=== PATIENT | male | born 1945 | race Caucasian/White ===

== ENCOUNTER → 2017-02-26 | Outpatient (REF) | payer MEDICARE ==
[~2017-02-26] MED LIST: ALBU17IN INH; ASPI1TAB PO; CLAR1TAB2 PO; FLUT11IN INH; LORA1SOL PO; LOSA100T PO; METO-207 PO; PANT40TA2 PO; SIMV10TA2 PO; VITA-122 PO
[2017-02-26 12:26] LABS: ALBUMIN/GLOBULIN RATIO 1.38 (1.00-1.93); ALKALINE PHOSPHATASE 109 U/L (45-117); ALT/SGPT 52 U/L (12-78); ANION GAP 8 MEQ/L (8-16); AST/SGOT 24 U/L (15-37); BILIRUBIN,TOTAL 0.4 MG/DL (0.2-1.0); BLOOD UREA NITROGEN 18 MG/DL (7-18); CALCIUM LEVEL 8.9 MG/DL (8.8-10.2); CARBON DIOXIDE LEVEL 29 MEQ/L (21-32); CHLORIDE LEVEL 100 MEQ/L (98-107); CHOLESTEROL LEVEL 159 MG/DL (<200); CREATININE FOR GFR 1.17 MG/DL (0.70-1.30); GLOMERULAR FILTRATION RATE > 60.0 (>42); GLUCOSE, FASTING 96 MG/DL (83-110); POTASSIUM SERUM 4.8 MEQ/L (3.5-5.1); SODIUM LEVEL 137 MEQ/L (136-145); TOTAL PROTEIN 6.9 GM/DL (6.4-8.2); TRIGLYCERIDES LEVEL 159 MG/DL (<150)
== END ==
LOC: M LABDRAW1 11:38
PROVIDERS: ATTEND Emergency Medicine
DX: I10 Essential (primary) hypertension (principal); E78.2 Mixed hyperlipidemia; E55.9 Vitamin D deficiency, unspecified; N40.1 Benign prostatic hyperplasia with lower urinary tract symptoms

== ENCOUNTER → 2017-04-10 | Outpatient (CLI) | payer MEDICARE ==
[~2017-04-10] MED LIST changes: -LOSA100T PO; +LOSA100T8 PO; -METO-207 PO; +METO-398 PO; +METO1TAB33 PO; +METO1TAB7 PO; +SIMV20TA2 PO
[2017-04-15 00:07] LABS: HSV TYPE I IgM AB <1:10 titer (<1:10); HSV TYPE II IgM ABY <1:10 titer (<1:10)
== END ==
LOC: M SMT 14:13
PROVIDERS: ATTEND Nurse Practitioner Women's Health
DX: Z11.3 Encounter for screening for infections with a predominantly sexual mode of transmission (principal); N48.9 Disorder of penis, unspecified; Z72.89 Other problems related to lifestyle
CPT/HCPCS: 36415; 86695; 86696; 86780; 87899; G0463

== ENCOUNTER → 2017-05-23 | Outpatient (CLI) | payer MEDICARE ==
[2017-05-23 13:58] LABS: MEAN CORPUSCULAR HEMOGLOBIN 33.3 pg (27.0-33.0); MEAN CORPUSCULAR HGB CONC 35.2 g/dl (32.0-36.5); MEAN CORPUSCULAR VOLUME 94.6 fl (80.0-96.0); RED CELL DISTRIBUTION WIDTH 12.8 % (11.5-14.5)
[2017-05-23 14:01] LABS: INR 0.97
[2017-05-23 14:20] LABS: ANION GAP 7 MEQ/L (8-16); BLOOD UREA NITROGEN 16 MG/DL (7-18); CARBON DIOXIDE LEVEL 28 MEQ/L (21-32); CHLORIDE LEVEL 103 MEQ/L (98-107); CREATININE FOR GFR 1.17 MG/DL (0.70-1.30); GLOMERULAR FILTRATION RATE > 60.0 (>42); GLUCOSE, FASTING 89 MG/DL (83-110); SODIUM LEVEL 138 MEQ/L (136-145)
[2017-05-23 14:21] LABS: CALCIUM LEVEL 9.3 MG/DL (8.8-10.2)
== END ==
LOC: M SMT 11:10
PROVIDERS: ATTEND Urology
DX: N48.9 Disorder of penis, unspecified (principal)

== ENCOUNTER → 2017-05-27 | Day surgery (SDC) | payer MEDICARE ==
[~2017-05-27] VITALS: Ht 177.8 cm; Wt 97.5 kg
[~2017-05-27] MED LIST changes: +BACITRACIN OINT 30GM As Ordered ONE; +BUPIVACAINE HCL 0.25% 30 ML VIAL As Ordered ONE; +KETOROLAC 60 MG/2 ML VIAL (J1885) As Ordered ONE; +LIDOCAINE 1% SDV INJ 30 ML VIAL As Ordered ONE; +LIDOCAINE 2% INJ 100 MG/5 ML SDV (FOR ANES.) As Ordered ONE; +LR 1,000 ML IV SCH; +MIDAZOLAM INJ 2 MG/2 ML VIAL (J2250) As Ordered ONE; +PROPOFOL 200 MG/20 ML VIAL As Ordered ONE; +ceFAZolin 2 GM/D5W 50 ML IV BAG (J0690) As Ordered ONE; +fentaNYL 100 MCG/2 ML INJECTION (J3010) As Ordered ONE
[2017-05-27 10:20] VITALS: BP 168/82
--- NOTE | 2017-05-28 07:24 | RO ---
DATE OF PROCEDURE: 05/27/2017 PREPROCEDURE DIAGNOSIS: Penile lesion. POSTPROCEDURE DIAGNOSIS: Penile lesion. FINDINGS: 1-2 cm penile lesion in the glans of the penis times two. PROCEDURE: Penile glans punch biopsy times two. SURGEON: Dr. Venkat Newman. TELEGRAPH OFFICE TELEPHONE CLERK: None. ANESTHESIA: General. COMPLICATIONS: None. ESTIMATED BLOOD LOSS: N/A. HISTORY OF PRESENT ILLNESS: 71-year-old male patient who has dark lesions in the glans. It has not disappeared with other medical therapy. For this reason, we have consented the patient for penile glans punch biopsies under anesthesia. PROCEDURE DESCRIPTION: With the patient under general anesthesia in supine position, after prepping and draping the area of concern which included the penile glans and genitalia, we started by doing a penile block with 10 mL of Marcaine 0.25% and lidocaine 1% a total of 10 mL in the base of the penis. We then proceeded to have two punch biopsies of the lesions and sent it for permanent pathology analysis. We placed a #3-0 Chromic to secure hemostasis. We placed bacitracin cream, fluff and a scrotal support. PLAN: The patient will pass to recovery and then he will be discharged home. He will followup at [facility] in about 1 week.
== END | disposition home or self-care (01) ==
LOC: M SDC 06:59
PROVIDERS: ATTEND Urology
DX: D07.4 Carcinoma in situ of penis (principal); E78.4 Other hyperlipidemia; I10 Essential (primary) hypertension; J44.9 Chronic obstructive pulmonary disease, unspecified; K21.9 Gastro-esophageal reflux disease without esophagitis; Z79.899 Other long term (current) drug therapy; Z79.82 Long term (current) use of aspirin; Z79.51 Long term (current) use of inhaled steroids; Z87.891 Personal history of nicotine dependence
CPT/HCPCS: 54100; 88305; J0690; J1885; J2250; J3010

== ENCOUNTER → 2017-06-13 | Outpatient (CLI) | payer MEDICARE ==
[~2017-06-13] MED LIST changes: -BACITRACIN OINT 30GM As Ordered ONE; -BUPIVACAINE HCL 0.25% 30 ML VIAL As Ordered ONE; +ISOVUE-370 76% 100ML VIAL (Q9967) As Ordered ONE; -KETOROLAC 60 MG/2 ML VIAL (J1885) As Ordered ONE; -LIDOCAINE 1% SDV INJ 30 ML VIAL As Ordered ONE; -LIDOCAINE 2% INJ 100 MG/5 ML SDV (FOR ANES.) As Ordered ONE; -LR 1,000 ML IV SCH; -MIDAZOLAM INJ 2 MG/2 ML VIAL (J2250) As Ordered ONE; -PROPOFOL 200 MG/20 ML VIAL As Ordered ONE; -ceFAZolin 2 GM/D5W 50 ML IV BAG (J0690) As Ordered ONE; -fentaNYL 100 MCG/2 ML INJECTION (J3010) As Ordered ONE
--- NOTE | 2017-06-13 15:08 | REP ---
CT of the abdomen and pelvis multiphase scanning without and with IV contrast: Comparison is 04/20/2014. The visualized lung stark are unremarkable. The hepatic parenchyma, pancreas and spleen are homogeneous and unremarkable on all phases of the study. There are surgical clips in the gallbladder fossa. The adrenals and kidneys are unremarkable. The abdominal aorta is unremarkable. There is no periaortic or retroperitoneal adenopathy. There is no mesenteric adenopathy. There is no ascites. The bowel and mesentery are unremarkable. Pelvis: There is no ascites. There is no inguinal adenopathy. There are several inguinal nodes bilaterally containing normal fatty nelson. There are no femoral or iliac enlarged nodes. No enlarged internal iliac nodes. The bladder and seminal vesicles are unremarkable. There are prostatic of this. The pelvic bowel loops are unremarkable. There are no lytic, blastic or destructive skeletal changes. Impression: Essentially negative CT study of the abdomen and pelvis. There is no lymphadenopathy or ascites. There are no lytic, blastic or destructive skeletal changes. Signed by Vamshi Medley MD 06/13/2017 02:59 P
--- NOTE | 2017-06-13 15:35 | REP ---
PA and lateral chest: Comparison is 05/02/2016. The lung stark are clear. The cardiac size is normal The nelson, mediastinum, and bony thorax are unremarkable. Impression: Negative PA and lateral chest. There is no interval change Signed by Vamshi Medley MD 06/13/2017 03:26 P
== END ==
LOC: M RAD 12:48
PROVIDERS: ATTEND Urology
DX: C60.9 Malignant neoplasm of penis, unspecified (principal)
CPT/HCPCS: 71020; 74178; Q9967

== ENCOUNTER → 2018-03-16 | Outpatient (REF) | payer MEDICARE ==
[2018-03-16 14:05] LABS: BASO % 0.5 % (0.0-1.0); EOS # 0.4 10^3/uL (0.0-0.50); EOS % 7.7 % (0.0-3.0); HEMATOCRIT 38.5 % (42.0-52.0); HEMOGLOBIN 13.7 g/dl (13.5-17.5); IMMATURE GRANULOCYTE % 0.2 % (0-3.0); LYMPH # 1.5 10^3/uL (1.5-4.5); LYMPH % 27.8 % (24.0-44.0); MEAN CORPUSCULAR HEMOGLOBIN 32.9 pg (27.0-33.0); MEAN CORPUSCULAR HGB CONC 35.6 g/dl (32.0-36.5); MEAN CORPUSCULAR VOLUME 92.5 fl (80.0-96.0); MONO # 0.6 10^3/uL (0.0-0.8); MONO % 11.5 % (0.0-5.0); NEUTROPHILS # 2.9 10^3/uL (1.8-7.7); NEUTROPHILS % 52.3 % (36.0-66.0); PLATELET COUNT, AUTOMATED 157 10^3/uL (150-450); RED BLOOD COUNT 4.16 10^6/uL (4.30-6.10); RED CELL DISTRIBUTION WIDTH 12.1 % (11.5-14.5); WHITE BLOOD COUNT 5.5 10^3/uL (4.0-10.0)
[2018-03-16 14:08] LABS: ALBUMIN 3.8 GM/DL (3.2-5.2); ALBUMIN/GLOBULIN RATIO 1.19 (1.00-1.93); ALKALINE PHOSPHATASE 125 U/L (45-117); ALT/SGPT 129 U/L (12-78); ANION GAP 7 MEQ/L (8-16); AST/SGOT 80 U/L (7-37); BILIRUBIN,TOTAL 0.6 MG/DL (0.2-1.0); BLOOD UREA NITROGEN 17 MG/DL (7-18); C REACTIVE PROTEIN QUANTITATIV 0.37 MG/DL (0.00-0.30); CALCIUM LEVEL 9.1 MG/DL (8.8-10.2); CARBON DIOXIDE LEVEL 28 MEQ/L (21-32); CHLORIDE LEVEL 103 MEQ/L (98-107); CREATININE FOR GFR 1.48 MG/DL (0.70-1.30); GLOMERULAR FILTRATION RATE 49.6 (>42); GLUCOSE, FASTING 95 MG/DL (70-100); POTASSIUM SERUM 4.2 MEQ/L (3.5-5.1); RHEUMATOID FACTOR QUANT < 10.0 IU/ML (<15.0); SODIUM LEVEL 138 MEQ/L (136-145)
[2018-03-16 14:48] LABS: HEPATITIS C VIRUS ABY INDEX < 0.0 INDEX (<0.8)
[2018-03-16 15:20] LABS: ERYTHROCYTE SEDIMENTATION RATE 10 mm/hr (0-20)
[2018-03-18 00:08] LABS: ANA (HEP2) Negative (.); Lyme Disease IgG/IgM Antibodie <0.91 ISR (0.00-0.90); Lyme Disease IgM Ab Quantitati <0.80 index (0.00-0.79)
== END ==
LOC: M LABDRAW1 11:30
DX: S20.361A Insect bite (nonvenomous) of right front wall of thorax, initial encounter (principal); X58.XXXA Exposure to other specified factors, initial encounter; Y92.89 Other specified places as the place of occurrence of the external cause; N18.3 Chronic kidney disease, stage 3 (moderate); R74.0 Nonspecific elevation of levels of transaminase and lactic acid dehydrogenase [LDH]; M25.50 Pain in unspecified joint
CPT/HCPCS: 80053

== ENCOUNTER 2018-08-27 09:59 | Day surgery (SDC) | payer MEDICARE ==
[2018-08-27] MEDS: NS 1,000 ML IV (10:24)
[2018-08-27] MEDS ORDERED: LIDOCAINE 2% INJ 100 MG/5 ML SDV (FOR ANES.) As Ordered (10:42)
[2018-08-27] MEDS ORDERED: PROPOFOL 200 MG/20 ML VIAL As Ordered ×2 (10:42→11:05)
== END 2018-08-27 11:49 | disposition home or self-care (01) ==
LOC: M OPP 09:59
DX: Z12.11 Encounter for screening for malignant neoplasm of colon (principal); Z86.010 Personal history of colon polyps; K62.1 Rectal polyp; D12.3 Benign neoplasm of transverse colon; K57.30 Diverticulosis of large intestine without perforation or abscess without bleeding; I10 Essential (primary) hypertension; E78.5 Hyperlipidemia, unspecified; K21.9 Gastro-esophageal reflux disease without esophagitis; R12 Heartburn; M19.90 Unspecified osteoarthritis, unspecified site; J44.9 Chronic obstructive pulmonary disease, unspecified; R06.02 Shortness of breath; Z79.82 Long term (current) use of aspirin; Z79.899 Other long term (current) drug therapy
CPT/HCPCS: 45385

== ENCOUNTER → 2019-03-08 | Outpatient (CLI) | payer MEDICARE ==
[~2019-03-08] MED LIST changes: -ASPI1TAB PO; +ASPI81TA26 PO; -ISOVUE-370 76% 100ML VIAL (Q9967) As Ordered ONE; -LORA1SOL PO; +LORA5SOL12 PO; +LOSA100T5 PO; -METO-398 PO; +METO200T28 PO; -PANT40TA2 PO; +PANT40TA3 PO; +VENTAER INH
[2019-03-08 10:55] LABS: BASO % 0.6 % (0.0-1.0); EOS # 0.5 10^3/uL (0.0-0.50); EOS % 9.5 % (0.0-3.0); HEMATOCRIT 40.2 % (42.0-52.0); HEMOGLOBIN 13.9 g/dl (13.5-17.5); LYMPH # 1.4 10^3/uL (1.5-4.5); MEAN CORPUSCULAR HEMOGLOBIN 32.9 pg (27.0-33.0); MEAN CORPUSCULAR HGB CONC 34.6 g/dl (32.0-36.5); MEAN CORPUSCULAR VOLUME 95.3 fl (80.0-96.0); MONO # 0.6 10^3/uL (0.0-0.8); MONO % 11.4 % (0.0-5.0); NEUTROPHILS # 2.8 10^3/uL (1.8-7.7); NEUTROPHILS % 52.3 % (36.0-66.0); PLATELET COUNT, AUTOMATED 141 10^3/uL (150-450); RED BLOOD COUNT 4.22 10^6/uL (4.30-6.10); WHITE BLOOD COUNT 5.4 10^3/uL (4.0-10.0)
[2019-03-08 11:30] LABS: ALBUMIN 3.8 GM/DL (3.2-5.2); BILIRUBIN,TOTAL 0.7 MG/DL (0.2-1.0); CALCIUM LEVEL 8.7 MG/DL (8.8-10.2); CHOLESTEROL RISK RATIO 2.678 (<5); CREATININE FOR GFR 1.27 MG/DL (0.70-1.30); POTASSIUM SERUM 4.2 MEQ/L (3.5-5.1); TOTAL PROTEIN 7.1 GM/DL (6.4-8.2)
== END ==
LOC: M SMT 09:09
PROVIDERS: ATTEND Physician Assistant
DX: E78.2 Mixed hyperlipidemia (principal)

== ENCOUNTER → 2019-03-08 | Outpatient (REF) | payer MEDICARE ==
[2019-03-08 13:54] LABS: RHEUMATOID FACTOR QUANT < 10.0 IU/ML (<15.0)
[2019-03-08 14:11] LABS: HEMOGLOBIN A1c 5.3 %
[2019-03-09 12:32] LABS: DRVV SCREEN 39.1 SEC
[2019-03-10 14:11] LABS: ANTI THROMBIN 3 FUNCT ACTIVITY 84 % (75-135)
[2019-03-11 00:07] LABS: ANCA-ATYPICAL <1:20 titer (Neg:<1:20); ANTINUCLEAR ANTIBODIES DIRECT Negative (Negative); CYTOPLASMIC NEUTROP AB ANCA-C <1:20 titer (Neg:<1:20); PERINUCLEAR AB ANCA-P <1:20 titer (Neg:<1:20); SJOGREN'S ANTI SS-A <0.2 AI (0.0-0.9); SJOGREN'S ANTI SS-B <0.2 AI (0.0-0.9)
[2019-03-11 14:27] LABS: ANTI DS-DNA AB <1:10 titer (.); CARDIOLIPIN IGA ANTIBODY <9 APL U/mL (0-11); CARDIOLIPIN IGG ANTIBODY <9 GPL U/mL (0-14); CARDIOLIPIN IGM ANTIBODY <9 MPL U/mL (0-12)
== END ==
LOC: M LABNEURO 11:01
PROVIDERS: ATTEND Psychiatry & Neurology Neurology
DX: G45.9 Transient cerebral ischemic attack, unspecified (principal); E78.2 Mixed hyperlipidemia

== ENCOUNTER → 2019-04-15 | Outpatient (CLI) | payer MEDICARE ==
--- NOTE | 2019-04-15 12:22 | REP ---
Chest two views HISTORY: Squamous cell carcinoma Comparison: 06/13/2017 The lungs are clear. The heart is normal in size. The pulmonary vasculature is normal in appearance. The bony structure is intact. IMPRESSION: No acute disease. Electronically Signed by Donell Gallegos MD 04/15/2019 12:13 P
[2019-04-15 17:40] LABS: BLOOD UREA NITROGEN 16 MG/DL (7-18); CALCIUM LEVEL 9.1 MG/DL (8.8-10.2); CARBON DIOXIDE LEVEL 30 MEQ/L (21-32); CHLORIDE LEVEL 106 MEQ/L (98-107); CREATININE FOR GFR 1.14 MG/DL (0.70-1.30); GLOMERULAR FILTRATION RATE > 60.0 (>42); GLUCOSE, FASTING 94 MG/DL (70-100); POTASSIUM SERUM 4.7 MEQ/L (3.5-5.1); SODIUM LEVEL 140 MEQ/L (136-145)
== END ==
LOC: M SMT 10:38
PROVIDERS: ATTEND Nurse Practitioner Women's Health
DX: C60.9 Malignant neoplasm of penis, unspecified (principal); D07.4 Carcinoma in situ of penis
CPT/HCPCS: 36415; 71046; 80048; G0463

== ENCOUNTER → 2019-04-22 | Outpatient (CLI) | payer MEDICARE ==
[~2019-04-22] MED LIST changes: +GASTROGRAFIN SOLUTION 30ML (Q9963) As Ordered ONE; +ISOVUE-370 76% 100ML VIAL (Q9967) As Ordered ONE
--- NOTE | 2019-04-22 17:33 | REP ---
CT urography: CT scan of the abdomen and pelvis without and with IV contrast: History: Penile cancer. Comparison CT study is from June 13, 2017. CT contrast dose: 100 ml of intravenous Isovue [address] findings: Preliminary digital insurance verification specialist radiograph shows clips in right upper quadrant. The lung bases are clear on axial CT images. There is no evidence of pleural effusion or upper abdominal ascites. The liver and the spleen are normal in size, homogeneous in texture. There are surgical clips post cholecystectomy. No adrenal lesion is seen. No pancreatic abnormalities observed. Kidneys enhance symmetrically and are morphologically intact. There is a 13 mm cyst in the upper pole of the left kidney which is slightly larger than on the 2017 study but not new. No retroperitoneal mass is seen. Normal retroperitoneal lymph nodes are noted, a change from the comparison study June 2017. There is some mural thrombus in a mildly ectatic common iliac artery on the left, unchanged. Vascular calcification is noted. No abhishek aneurysm is seen. There are dystrophic calcifications in the mildly prominent prostate gland. Urinary bladder is unremarkable. No pelvic mass or adenopathy is observed. Normal appendix is seen. No abdominal wall defect is observed. Bone window settings show no bony destructive lesion. There are degenerative disc changes at L5-S1 and to a lesser extent at the other lumbar levels. impression: No evidence of mass or adenopathy. Post cholecystectomy. Small left renal cyst. Prominent prostate gland. Otherwise negative. Electronically Signed by Rosas Shelton MD 04/22/2019 07:54 P
== END ==
LOC: M RAD 13:57
PROVIDERS: ATTEND Nurse Practitioner Women's Health
DX: Z85.528 Personal history of other malignant neoplasm of kidney (principal); N28.1 Cyst of kidney, acquired; Z90.49 Acquired absence of other specified parts of digestive tract
CPT/HCPCS: 74178; Q9963; Q9967

== ENCOUNTER → 2019-09-29 | Outpatient (REF) | payer MEDICARE ==
[~2019-09-29] MED LIST changes: -GASTROGRAFIN SOLUTION 30ML (Q9963) As Ordered ONE; -ISOVUE-370 76% 100ML VIAL (Q9967) As Ordered ONE; -SIMV10TA2 PO; +SIMV10TA21 PO; -SIMV20TA2 PO; +SIMV20TA22 PO
[2019-09-29 15:50] LABS: CALCIUM LEVEL 9.2 MG/DL (8.8-10.2); CREATININE FOR GFR 1.3 MG/DL (0.70-1.30); GLOMERULAR FILTRATION RATE 57.3 (>42); POTASSIUM SERUM 3.9 MEQ/L (3.5-5.1)
== END ==
LOC: M LABDRAW1 10:25
PROVIDERS: ATTEND Physician Assistant
DX: I10 Essential (primary) hypertension (principal)

== ENCOUNTER → 2020-04-13 | Outpatient (CLI) | payer MEDICARE ==
--- NOTE | 2020-04-13 10:11 | REP ---
ABDOMINAL SERIES: Supine and erect views of the abdomen demonstrate no free air and no evidence of obstruction. No dilated bowel loops are seen. There are vascular calcifications in the pelvis. There are degenerative changes of the spine and hips. An accompanying view of the chest demonstrates no acute infiltrate. The heart is normal in size. Mediastinal silhouette is unremarkable. IMPRESSION: Negative abdominal series. Unreviewed
== END ==
LOC: M ADAMS 08:49
PROVIDERS: ATTEND Physician Assistant
DX: R19.7 Diarrhea, unspecified (principal); R10.10 Upper abdominal pain, unspecified

== ENCOUNTER → 2020-04-13 | Outpatient (CLI) | payer MEDICARE ==
[~2020-04-13] MED LIST changes: +GASTROGRAFIN SOLUTION 30ML (Q9963) As Ordered ONE; +ISOVUE-370 76% 100ML VIAL As Ordered ONE
--- NOTE | 2020-04-13 12:53 | REP ---
CT ABDOMEN AND PELVIS WITH ORAL AND IV CONTRAST: TECHNIQUE: Axial contrast-enhanced images from the lung bases to the pubic symphysis using 100 mL Isovue-370 intravenous contrast material with multiplanar reformations. COMPARISON: 06/13/2017 No infiltrate is seen in the visualized lung bases. The liver demonstrates no mass. The patient has had a prior cholecystectomy. There is not significant biliary dilatation. Spleen is unremarkable. The adrenal glands demonstrate no mass. Pancreas demonstrates no mass. There is no hydronephrosis bilaterally. There is a 1.5 cm cyst in the upper pole of the left kidney with adjacent subcentimeter cyst. There is atherosclerotic calcification of the abdominal aorta without aneurysm. There is no free air or free fluid. No bowel wall thickening is seen. The appendix is normal. In the upper abdomen centrally in the mesentery, there are hazy inflammatory changes with multiple clustered subcentimeter lymph nodes compatible with mesenteric inflammation and mesenteritis. Again the small and large bowel loops demonstrate no evidence of wall thickening. There is no pelvic mass. Urinary bladder is mildly distended and grossly unremarkable. There are small bilateral inguinal hernias containing noninflamed fat. 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 No bowel wall abnormality is seen. Normal appendix. No free air, free fluid or bowel obstruction. Small bilateral inguinal hernias containing noninflamed fat. Unreviewed
== END ==
LOC: M RAD 10:03
PROVIDERS: ATTEND Physician Assistant
DX: K40.90 Unilateral inguinal hernia, without obstruction or gangrene, not specified as recurrent (principal); R10.10 Upper abdominal pain, unspecified; R19.7 Diarrhea, unspecified; M79.10 Myalgia, unspecified site
CPT/HCPCS: 36415; 74021; 74177; 80053; 83690; 85025; 86617; Q9963; Q9967

== ENCOUNTER → 2020-04-13 | Outpatient (CLI) | payer MEDICARE ==
[~2020-04-13] MED LIST changes: -GASTROGRAFIN SOLUTION 30ML (Q9963) As Ordered ONE; -ISOVUE-370 76% 100ML VIAL As Ordered ONE
[2020-04-13 10:11] LABS: BASO % 0.2 % (0.0-1.0); EOS # 0.4 10^3/uL (0.0-0.5); EOS % 6.3 % (0.0-3.0); HEMATOCRIT 44.9 % (42.0-52.0); HEMOGLOBIN 15.4 g/dl (13.5-17.5); LYMPH # 0.9 10^3/uL (1.5-5.0); LYMPH % 13.1 % (24.0-44.0); MEAN CORPUSCULAR HEMOGLOBIN 30.5 pg (27.0-33.0); MEAN CORPUSCULAR HGB CONC 34.3 g/dl (32.0-36.5); MEAN CORPUSCULAR VOLUME 88.9 fl (80.0-96.0); MONO # 0.8 10^3/uL (0.0-0.8); MONO % 12.5 % (0.0-5.0); NEUTROPHILS # 4.4 10^3/uL (1.5-8.5); NEUTROPHILS % 67.6 % (36.0-66.0); PLATELET COUNT, AUTOMATED 144 10^3/uL (150-450); RED BLOOD COUNT 5.05 10^6/uL (4.30-6.10); WHITE BLOOD COUNT 6.5 10^3/uL (4.0-10.0)
[2020-04-13 10:40] LABS: ALBUMIN 3.8 GM/DL (3.2-5.2); BILIRUBIN,TOTAL 0.8 MG/DL (0.2-1.0); CALCIUM LEVEL 8.7 MG/DL (8.8-10.2); CREATININE FOR GFR 1.69 MG/DL (0.70-1.30); GLOMERULAR FILTRATION RATE 42.3 (>42); POTASSIUM SERUM 4.3 MEQ/L (3.5-5.1)
[2020-04-14 19:08] LABS: Lyme Disease IgG/IgM Antibodie <0.91 ISR (0.00-0.90); Lyme Disease IgM Ab Quantitati <0.80 index (0.00-0.79)
== END ==
LOC: M LABDRWAD 08:54
PROVIDERS: ATTEND Physician Assistant
DX: R10.10 Upper abdominal pain, unspecified (principal); R19.7 Diarrhea, unspecified; M79.10 Myalgia, unspecified site

== ENCOUNTER 2020-04-17 17:05 | Emergency (ER) | payer MEDICARE ==
[~2020-04-17] VITALS: Ht 177.8 cm; Wt 98.7 kg
[2020-04-17] MEDS ORDERED: NS 1,000 ML IV ONE (17:45)
[2020-04-17] MEDS: GASTROGRAFIN SOLUTION 30ML PO SCH ×2 (18:08→18:32)
[2020-04-17 18:19] LABS: BASO % 0.3 % (0.0-1.0); EOS # 0.4 10^3/uL (0.0-0.5); EOS % 4.9 % (0.0-3.0); HEMATOCRIT 42.2 % (42.0-52.0); HEMOGLOBIN 14.2 g/dl (13.5-17.5); LYMPH # 1.8 10^3/uL (1.5-5.0); LYMPH % 23.8 % (24.0-44.0); MEAN CORPUSCULAR HEMOGLOBIN 30.2 pg (27.0-33.0); MEAN CORPUSCULAR HGB CONC 33.6 g/dl (32.0-36.5); MEAN CORPUSCULAR VOLUME 89.8 fl (80.0-96.0); MONO # 0.8 10^3/uL (0.0-0.8); MONO % 10.9 % (0.0-5.0); NEUTROPHILS # 4.6 10^3/uL (1.5-8.5); NEUTROPHILS % 59.7 % (36.0-66.0); PLATELET COUNT, AUTOMATED 213 10^3/uL (150-450); WHITE BLOOD COUNT 7.7 10^3/uL (4.0-10.0)
[2020-04-17 18:39] LABS: ALBUMIN 3.8 GM/DL (3.2-5.2); BILIRUBIN,DIRECT 0.3 MG/DL (0.0-0.2); BILIRUBIN,TOTAL 0.8 MG/DL (0.2-1.0)
[2020-04-17] MEDS ORDERED: NS 2,000 ML in IV 1 EA IV ONE (19:00)
[2020-04-17] MEDS ORDERED: ISOVUE-370 76% 100ML VIAL As Ordered ONE (19:34)
--- NOTE | 2020-04-17 20:45 | REPVR ---
PROCEDURE INFORMATION: Exam: CT Abdomen And Pelvis With Contrast Exam date and time: 04/17/2020 7:41 PM Age: 74 years old Clinical indication: Other: Diarrhea; Additional info: Diarrhea; R/O colitis TECHNIQUE: Imaging protocol: Computed tomography of the abdomen and pelvis with intravenous contrast. Radiation optimization: All CT scans at this facility use at least one of these dose optimization techniques: automated exposure control; mA and/or kV adjustment per patient size (includes targeted exams where dose is matched to clinical indication); or iterative reconstruction. Contrast material: ISOVUE 370; Contrast volume: 75 ml; Contrast route: IV; COMPARISON: CT ABD PELVIS WITH CONTRAST 04/13/2020 11:37 AM FINDINGS: Liver: Normal. No mass. Gallbladder and bile ducts: Cholecystectomy clips. Pancreas: Normal. No ductal dilation. Spleen: Normal. No splenomegaly. Adrenals: Normal. No mass. Kidneys and ureters: 1.4 cm cyst at the upper pole of left kidney. Stomach and bowel: Unremarkable. No obstruction. No mucosal thickening. Appendix: No evidence of appendicitis. Intraperitoneal space: Unremarkable. No free air. No significant fluid collection. Vasculature: Unremarkable. No abdominal aortic aneurysm. Lymph nodes: Unremarkable. No enlarged lymph nodes. Bladder: Unremarkable as visualized. Reproductive: Unremarkable as visualized. Bones/joints: Degenerative changes of the spine, most prominent at L5-S1. Soft tissues: Bilateral inguinal hernias containing fat. IMPRESSION: No evidence for colitis. Electronically signed by: Foster Izquierdo On 04/17/2020 20:45:03 PM
[2020-04-17 21:52] VITALS: BP 108/66
== END 2020-04-17 22:05 | disposition home or self-care (01) ==
LOC: M ED 17:05
DX: A07.2 Cryptosporidiosis (principal); R19.7 Diarrhea, unspecified; I10 Essential (primary) hypertension; J44.9 Chronic obstructive pulmonary disease, unspecified; N28.1 Cyst of kidney, acquired; K40.90 Unilateral inguinal hernia, without obstruction or gangrene, not specified as recurrent; M51.37 Other intervertebral disc degeneration, lumbosacral region; Z79.82 Long term (current) use of aspirin; Z79.899 Other long term (current) drug therapy

== ENCOUNTER → 2020-04-17 | Outpatient (CLI) | payer MEDICARE ==
[2020-04-17 13:38] LABS: BASO % 0.3 % (0.0-1.0); EOS # 0.4 10^3/uL (0.0-0.5); EOS % 5.2 % (0.0-3.0); HEMATOCRIT 42.6 % (42.0-52.0); HEMOGLOBIN 14.5 g/dl (13.5-17.5); LYMPH # 1.6 10^3/uL (1.5-5.0); LYMPH % 24.3 % (24.0-44.0); MEAN CORPUSCULAR HEMOGLOBIN 30.2 pg (27.0-33.0); MEAN CORPUSCULAR VOLUME 88.8 fl (80.0-96.0); MONO # 0.8 10^3/uL (0.0-0.8); MONO % 11.8 % (0.0-5.0); NEUTROPHILS # 3.9 10^3/uL (1.5-8.5); NEUTROPHILS % 58.3 % (36.0-66.0); PLATELET COUNT, AUTOMATED 184 10^3/uL (150-450); WHITE BLOOD COUNT 6.7 10^3/uL (4.0-10.0)
[2020-04-17 13:56] LABS: ALBUMIN 3.7 GM/DL (3.2-5.2); BILIRUBIN,TOTAL 0.8 MG/DL (0.2-1.0); CREATININE FOR GFR 1.76 MG/DL (0.70-1.30); GLOMERULAR FILTRATION RATE 40.4 (>42); POTASSIUM SERUM 4.8 MEQ/L (3.5-5.1); TOTAL PROTEIN 6.8 GM/DL (6.4-8.2)
== END ==
LOC: M PLALAB 11:41
PROVIDERS: ATTEND Nurse Practitioner Family
DX: R19.7 Diarrhea, unspecified (principal)

== ENCOUNTER 2020-04-20 16:38 | Inpatient (IN) | payer MEDICARE ==
[~2020-04-20] VITALS: Ht 177.8 cm; Wt 95.5 kg
[2020-04-20 17:47] LABS: BASO % 0.4 % (0.0-1.0); EOS # 0.2 10^3/uL (0.0-0.5); EOS % 3.2 % (0.0-3.0); HEMATOCRIT 42.5 % (42.0-52.0); HEMOGLOBIN 14.5 g/dl (13.5-17.5); LYMPH # 1.2 10^3/uL (1.5-5.0); LYMPH % 20.7 % (24.0-44.0); MEAN CORPUSCULAR HEMOGLOBIN 30.1 pg (27.0-33.0); MEAN CORPUSCULAR HGB CONC 34.1 g/dl (32.0-36.5); MEAN CORPUSCULAR VOLUME 88.4 fl (80.0-96.0); MONO # 0.6 10^3/uL (0.0-0.8); MONO % 11.1 % (0.0-5.0); NEUTROPHILS # 3.7 10^3/uL (1.5-8.5); NEUTROPHILS % 64.1 % (36.0-66.0); PLATELET COUNT, AUTOMATED 228 10^3/uL (150-450); RED BLOOD COUNT 4.81 10^6/uL (4.30-6.10); WHITE BLOOD COUNT 5.7 10^3/uL (4.0-10.0)
[2020-04-20 18:08] LABS: ALBUMIN 3.9 GM/DL (3.2-5.2); ALT/SGPT 69 U/L (12-78); BILIRUBIN,DIRECT 0.2 MG/DL (0.0-0.2); BILIRUBIN,TOTAL 0.7 MG/DL (0.2-1.0); BLOOD UREA NITROGEN 15 MG/DL (7-18); CALCIUM LEVEL 9.3 MG/DL (8.8-10.2); CARBON DIOXIDE LEVEL 22 MEQ/L (21-32); CHLORIDE LEVEL 104 MEQ/L (98-107); CREATININE FOR GFR 1.37 MG/DL (0.70-1.30); GLOMERULAR FILTRATION RATE 53.9 (>42); GLUCOSE, FASTING 91 MG/DL (70-100); LIPASE 730 U/L (73-393); POTASSIUM SERUM 4.3 MEQ/L (3.5-5.1); SODIUM LEVEL 131 MEQ/L (136-145); TOTAL PROTEIN 7.2 GM/DL (6.4-8.2)
[2020-04-20] MEDS ORDERED: NS 1,000 ML IV ONE (18:45)
[2020-04-20] MEDS ORDERED: HYDR25TAB PO (20:26)
[2020-04-20] MEDS ORDERED: LOSA50TA88 PO (20:26)
[2020-04-20] MEDS ORDERED: ALLO10TA PO (20:26)
[2020-04-20] MEDS ORDERED: VITAD1000T PO (20:26)
[2020-04-20] MEDS ORDERED: XIFA550T PO (20:26)
[2020-04-20] MEDS ORDERED: ATOR40TA75 PO (20:26)
[2020-04-20] MEDS ORDERED: LORA-674 PO (20:26)
[2020-04-20] MEDS ORDERED: PLAV1TAB2 PO (20:26)
[2020-04-20] MEDS ORDERED: ACETAMINOPHEN TAB 650MG DOSE (2X325MG) PO PRN (20:30)
[2020-04-20] MEDS ORDERED: FLUTICASONE HFA 110 MCG 12 GM INHALER (FLOVENT) INH PRN (21:30)
[2020-04-20] MEDS ORDERED: ALBUTEROL SULFATE 2.5 MG/0.5 ML INH NEB SOLN INH PRN (21:30)
--- NOTE | 2020-04-20 21:36 | HPEPDOC ---
General Date of Admission Apr 20, 2020 at 20:21 Date of Service: Apr 20, 2020 Chief Complaint The patient is a 74-year-old male who presented to the ER with persistent diarrhea History of Present Illness Patient is a 74-year-old male with a PMHx of TIA (s/p L endarterectomy), HTN, [place] [facility] who presented to the emergency room after experiencing 12 days of diarrhea. Patient reports that she was at urgent care on 04/17 and had a stool sample taken. Patient was subsequently advised to go to the emergency room for further evaluation. Upon arrival to emergency room, patient has received 3 L of normal saline. Patient was subsequently discharged. Patient follow-up with his primary care provider today and reviewed for stool sample, which had indicated Cryptosporidium and patient was sent to emergency room for further evaluation and lab work. Currently, patient reports hes been experiencing diarrhea for 12 days. Reports 5-6 bowel movements a day with inability to sleep. Patient denies any abdominal pain. Reports some nausea without vomiting. Denies fevers or chills. Denies chest pain, shortness of breath, palpitations or cough. He does report that his appetite is poor and has expressed some weight loss that hes unable to quantify, but he does report that his belt has lost 2 notches. Of note, patient reports that he gets his water through [facility]. He reports that 4 years ago. His water was abnormal and discontinued the use. After that point, he started to use a mobile tank to fill water [id number] from his house. Home Medications Scheduled Allopurinol (Allopurinol) 100 Mg Tablet, 100 MG PO DAILY, (Reported) Aspirin (Aspirin EC) 81 Mg Tab, 81 MG PO DAILY, (Reported) Atorvastatin Calcium (Atorvastatin Calcium) 40 Mg Tablet, 40 MG PO DAILY, (Reported) Cholecalciferol (Vitamin D3) (Vitamin D3) 1,000 Unit Tablet, 1,000 UNITS PO DAILY, (Reported) Clopidogrel Bisulfate (Plavix) 75 Mg Tablet, 75 MG PO DAILY, (Reported) Hydrochlorothiazide (Hydrochlorothiazide) 25 Mg Tablet, 25 MG PO DAILY, (Reported) Loratadine (Loratadine) 10 Mg Tablet, 10 MG PO DAILY, (Reported) Losartan Potassium (Losartan Potassium) 50 Mg Tablet, 100 MG PO DAILY, (Reported) Metoprolol Succinate (Metoprolol Succinate) 100 Mg Tab, 100 MG PO DAILY, (Reported) Pantoprazole Sodium (Pantoprazole Sodium) 40 Mg Tab, 40 MG PO DAILY, (Reported) Rifaximin (Xifaxan) 550 Mg Tablet, 550 MG PO BID, (Reported) NEW MED Scheduled PRN Albuterol Sulfate (Ventolin Hfa) 108 Mcg/Act Aer, 2 PUFFS INH Q4H PRN for SOB/WHEEZING, (Reported) Fluticasone Propionate (Flovent Hfa) 110 Mcg/Act Aer, 2 PUFFS INH BID PRN for SOB/WHEEZING, (Reported) Allergies Coded Allergies: No Known Allergies (Unverified , 05/23/17) Past Medical History Medical History TIA (s/p L endarterectomy), HTN, [place] [facility] Surgical History Cholecystectomy Right knee meniscus repair 2 Left carotid endarterectomy Hemorrhoidectomy Family History - Mother and father both , unknown medical problems Social History - Denies the use of illicit drugs; patient quit alcohol several years ago patient was a prior smoker of 20 years at 1 PPD - Denies recent travel or sick contacts - Lives alone Review of Systems Other systems 10 point review of systems complete, all negative otherwise stated in HPI Vital Signs - Vitals: BP 124/75, HR 82, RR 18, Sat 99RA, Temp 98.0F - General: Lying in bed, No acute distress, Speaking in full sentences, AAOx3 - HEENT: NC, AT, PERRLA, EOMI - CVS: RRR, +S1S2, - Murmurs / rubs / gallops - Lungs: Fair air entry bilaterally, No appreciable wheezing / rales / rhonchi - Abdomen: Soft, Non-distended, Non-tender - Extremities: No lower extremity edema, No calf tenderness - Neuro: No focal motor or sensory deficit - Skin: No visible rashes Laboratory Data Labs 24H Laboratory Tests 2 04/20/20 17:17: Immature Granulocyte % (Auto) 0.5, Neutrophils (%) (Auto) 64.1, Lymphocytes (%) (Auto) 20.7L, Monocytes (%) (Auto) 11.1H, Eosinophils (%) (Auto) 3.2H, Basophils (%) (Auto) 0.4, Neutrophils # (Auto) 3.7, Lymphocytes # (Auto) 1.2L, Monocytes # (Auto) 0.6, Eosinophils # (Auto) 0.2, Basophils # (Auto) 0.0, Nucleated Red Blood Cells % (auto) 0.0, Anion Gap 5L, Glomerular Filtration Rate 53.9, Calcium Level 9.3, Total Bilirubin 0.7, Direct Bilirubin 0.2, Aspartate Amino Transf (AST/SGOT) 30, Alanine Aminotransferase (ALT/SGPT) 69, Alkaline Phosphatase 432H, Total Protein 7.2, Albumin 3.9, Albumin/Globulin Ratio 1.2, Lipase 730H 04/20/20 18:34: Lactic Acid Level 1.0 CBC/BMP Laboratory Tests 04/20/20 17:17 Plan / VTE VTE Prophylaxis Ordered?: Yes Plan Plan Diarrhea - likely 2/2 cryptosporidium - likely 2/2 contaminated water - Patient presented to the emergency room with complaints of persistent diarrhea over the last 12 days - She had a recent visit to the emergency room on 04/17 and was discharged after receiving 3 L of normal saline - Currently patient is hemodynamically stable and afebrile - Physical is nonrevealing - Lab work is relatively benign - Stool culture 04/17: Cryptosporidium - Patient reports he was recently given a sample of rifaximin that he has not yet started - Will check HIV / Hepatitis profile - Will start IV fluid hydration and Nitazoxanide TIA (s/p L endarterectomy) - c/w ASA and Plavix HTN - BP well controlled - Will check ECHO - Will hold HCTZ - Will c/w Losartan with holding parameters DLP - c/w Atorvastatin and ASA [place] [facility] - A well on room air - No evidence of exacerbation - Patient reports he uses inhaled therapy intermittently at home Vitamin D - c/w Supplementation Gout - c/w Allopurinol GERD - Will c/w protonix DVT prophylaxis - Will start Heparin PEDRO KRUSE MD Apr 20, 2020 21:36
[2020-04-20 22:07] VITALS: BP 121/68
[2020-04-20] MEDS: NITAZOXANIDE 500 MG TAB (ALINIA) PO SCH (23:48)
[2020-04-20] MEDS: NS 1,000 ML IV SCH (23:49)
[2020-04-21 05:06] VITALS: BP 119/67
[2020-04-21] MEDS: NS 1,000 ML IV SCH ×2 (05:31→12:57)
[2020-04-21] MEDS: HEPARIN SOD (PORCINE) 5000UNITS/ML VIAL (J1644 PER 1000UNITS) SC SCH ×3 (05:31→22:14)
[2020-04-21 07:35] LABS: BASO % 0.2 % (0.0-1.0); EOS # 0.2 10^3/uL (0.0-0.5); EOS % 4.2 % (0.0-3.0); HEMATOCRIT 35.2 % (42.0-52.0); LYMPH # 1.1 10^3/uL (1.5-5.0); LYMPH % 27.1 % (24.0-44.0); MEAN CORPUSCULAR HEMOGLOBIN 30.2 pg (27.0-33.0); MEAN CORPUSCULAR HGB CONC 34.1 g/dl (32.0-36.5); MEAN CORPUSCULAR VOLUME 88.4 fl (80.0-96.0); MONO # 0.6 10^3/uL (0.0-0.8); NEUTROPHILS # 2.2 10^3/uL (1.5-8.5); NEUTROPHILS % 54.3 % (36.0-66.0); PLATELET COUNT, AUTOMATED 163 10^3/uL (150-450); RED BLOOD COUNT 3.98 10^6/uL (4.30-6.10); WHITE BLOOD COUNT 4.1 10^3/uL (4.0-10.0)
[2020-04-21 07:57] LABS: BLOOD UREA NITROGEN 14 MG/DL (7-18); CALCIUM LEVEL 8.2 MG/DL (8.8-10.2); CARBON DIOXIDE LEVEL 20 MEQ/L (21-32); CHLORIDE LEVEL 110 MEQ/L (98-107); CREATININE FOR GFR 1.12 MG/DL (0.70-1.30); GLOMERULAR FILTRATION RATE > 60.0 (>42); GLUCOSE, FASTING 80 MG/DL (70-100); MAGNESIUM LEVEL 1.6 MG/DL (1.8-2.4); POTASSIUM SERUM 3.8 MEQ/L (3.5-5.1); SODIUM LEVEL 137 MEQ/L (136-145)
[2020-04-21] MEDS: ATORVASTATIN 20 MG TAB PO SCH (09:48)
[2020-04-21] MEDS: CLOPIDOGREL 75 MG TAB PO SCH (09:48)
[2020-04-21] MEDS: VITAMIN D 1,000 INTERNATIONAL UNITS TABLET PO SCH (09:48)
[2020-04-21] MEDS: PANTOPRAZOLE 40MG TAB (PROTONIX) PO SCH (09:48)
[2020-04-21] MEDS: LORATADINE 10 MG TAB PO SCH (09:49)
[2020-04-21] MEDS: allopurinoL 100 MG TAB PO SCH (09:49)
[2020-04-21] MEDS: ASPIRIN 81 MG ENTERIC TAB PO SCH (09:49)
[2020-04-21] MEDS: METOPROLOL SUCC (TopROL XL) 100MG *XL* TAB PO SCH (09:51)
[2020-04-21] MEDS: LOSARTAN 50MG TABLET PO SCH (09:51)
[2020-04-21] MEDS ORDERED: MAG SULF 1GM/100ML (MAG RUN) 1 GM in IV 1 EA IV ONE (11:00)
[2020-04-21] MEDS: NITAZOXANIDE 500 MG TAB (ALINIA) PO SCH ×2 (11:31→22:14)
--- NOTE | 2020-04-21 12:50 | IPNPDOC ---
Text Note Date of Service The patient was seen on 04/21/20. NOTE Subjective: Patient is a 74-year-old male with a PMHx of TIA (s/p L endarterectomy), HTN, [place] [facility] who presented to the emergency room after experiencing 12 days of diarrhea. Patient was found to have cryptosporidium in his stool and sent to the emergency room for further evaluation. Patient was admitted to hospitalist service for further evaluation and treatment. Patient was seen and examined at the bedside. Patient reports that he feels sign ificantly better. He denies any chest pain, shortness of breath, abdominal pain, nausea, vomiting or any significant diarrhea. Objective: Vitals (See below) General: Lying in bed, no acute distress, comfortable, AAOx3 HEENT: NC, AT CVS: RRR, +S1S2 Lungs: Fair air entry b/l, -w/r/r Abdomen: Soft, ND, NT Extremities: - Edema, - Calf tenderness Assessment and plan: Diarrhea - likely 2/2 cryptosporidium - likely 2/2 contaminated water - Patient presented to the emergency room with complaints of persistent diarrhea over the last 12 days - She had a recent visit to the emergency room on 04/17 and was discharged after receiving 3 L of normal saline - Currently patient is hemodynamically stable and afebrile - Stool culture 04/17: Cryptosporidium - Patient reports he was recently given a sample of rifaximin that he has not yet started - HIV / Hepatitis profile pending - Will reduce IV fluid hydration and c/w Nitazoxanide (Day #2) TIA (s/p L endarterectomy) - c/w ASA and Plavix HTN - BP well controlled - ECHO pending - Will hold HCTZ - c/w Losartan with holding parameters DLP - c/w Atorvastatin and ASA [place] [facility] - A well on room air - No evidence of exacerbation - Patient reports he uses inhaled therapy intermittently at home Vitamin D - c/w Supplementation Gout - c/w Allopurinol GERD - c/w protonix DVT prophylaxis - c/w Heparin Disposition: - Anticipate discharge tomorrow VS,Fishbone, I+O VS, Fishbone, I+O Laboratory Tests 04/20/20 17:17 04/21/20 06:36 Vital Signs Date Time Temp Pulse Resp B/P (MAP) Pulse Ox O2 Delivery O2 Flow Rate FiO2 04/21/20 09:51 87 113/74 04/21/20 05:06 99.0 20 97 Room Air I&O- Last 24 Hours up to 6 AM 04/21/20 06:00 Intake Total 1540 ml Output Total 0 ml Balance 1540 ml PEDRO KRUSE MD Apr 21, 2020 12:50
[2020-04-21 14:00] VITALS: BP 120/76
--- NOTE | 2020-04-21 17:07 | ECHO ---
DATE OF STUDY: 04/21/2020 REFERRING PHYSICIAN: Dr. Wayne More INDICATION: Dyspnea. HEIGHT: 178 cm WEIGHT: 96 kg 2-D MEASUREMENTS: Left atrium: 3.8 cm Ventricular septum: 0.88 cm Posterior wall: 0.90 cm Left ventricle diastole: 4.9 cm LVOT: 2.3 cm Aortic root: 3.5 cm Inferior vena cava: 0.9 cm (much greater than 50% of respiratory variation) DOPPLER MEASUREMENTS: No aortic stenosis. No aortic regurgitation. Aortic valve velocity: 127 cm/sec LVOT velocity: 85.0 cm/sec LVOT VTI: 17.1 cm No mitral regurgitation. No mitral stenosis. Mitral E velocity: 61.7 cm/sec Mitral A velocity: 70.6 cm/sec Trace tricuspid regurgitation. No pulmonic regurgitation. Pulmonary artery systolic pressure: 34 mmHg MITRAL ANNULAR TISSUE DOPPLER E prime septal: 6.7 cm/sec E prime lateral: 7.9 cm/sec DESCRIPTION: The rhythm was sinus. This was a moderately technically difficult echocardiogram. This was a 2-D, M-mode, color flow Doppler and pulsed wave Doppler examination and included mitral annular tissue Doppler. CONCLUSIONS: 1. Normal left ventricle internal dimensions and wall thickness. Normal regional LV wall motion and wall thickening. Normal LV systolic function. Left ventricular ejection fraction (LVEF) 65% by visual estimate. Grade 1 LV diastolic dysfunction (impaired relaxation filling pattern). 2. Suggestive of mild elevation of pulmonary artery systolic pressure. Suggestive of central venous pressure of 0-5 mmHg. 3. No pericardial effusion. 4. Otherwise, normal appearing echocardiogram-Doppler findings. [facility]
[2020-04-21 18:15] LABS: HEPATITIS B SURFACE ANTIGEN NEGATIVE (NEGATIVE)
[2020-04-21 18:42] LABS: HEPATITIS B CORE ANTIBODY IGM NEGATIVE (NEGATIVE); HEPATITIS C VIRUS ABY INDEX 0.3 INDEX (<0.8)
[2020-04-21 18:43] LABS: HIV 1&2 SCREEN CENTAUR NEGATIVE (NEGATIVE)
[2020-04-21 18:44] LABS: HEPATITIS A ANTIBODY IGM NEGATIVE (NEGATIVE)
[2020-04-21 19:49] VITALS: BP 119/73
[2020-04-21] MEDS ORDERED: MAALOX 30 ML SUSP *UDC PO ONE (23:00)
[2020-04-22] MEDS: NS 1,000 ML IV SCH (02:38)
[2020-04-22 05:31] VITALS: BP 123/73
[2020-04-22] MEDS: HEPARIN SOD (PORCINE) 5000UNITS/ML VIAL (J1644 PER 1000UNITS) SC SCH ×3 (05:36→21:19)
[2020-04-22 08:33] LABS: BASO % 0.4 % (0.0-1.0); EOS # 0.2 10^3/uL (0.0-0.5); EOS % 3.4 % (0.0-3.0); HEMOGLOBIN 12.8 g/dl (13.5-17.5); LYMPH # 1.3 10^3/uL (1.5-5.0); LYMPH % 26.4 % (24.0-44.0); MEAN CORPUSCULAR HEMOGLOBIN 30.6 pg (27.0-33.0); MEAN CORPUSCULAR HGB CONC 34.6 g/dl (32.0-36.5); MEAN CORPUSCULAR VOLUME 88.5 fl (80.0-96.0); MONO # 0.6 10^3/uL (0.0-0.8); MONO % 12.2 % (0.0-5.0); NEUTROPHILS # 2.7 10^3/uL (1.5-8.5); NEUTROPHILS % 57.4 % (36.0-66.0); PLATELET COUNT, AUTOMATED 189 10^3/uL (150-450); RED BLOOD COUNT 4.18 10^6/uL (4.30-6.10); WHITE BLOOD COUNT 4.7 10^3/uL (4.0-10.0)
[2020-04-22] MEDS ORDERED: ALIN500T2 PO (08:52)
[2020-04-22 09:01] LABS: BLOOD UREA NITROGEN 8 MG/DL (7-18); CALCIUM LEVEL 8.3 MG/DL (8.8-10.2); CARBON DIOXIDE LEVEL 22 MEQ/L (21-32); CHLORIDE LEVEL 111 MEQ/L (98-107); CREATININE FOR GFR 1.06 MG/DL (0.70-1.30); GLOMERULAR FILTRATION RATE > 60.0 (>42); GLUCOSE, FASTING 84 MG/DL (70-100); POTASSIUM SERUM 4.2 MEQ/L (3.5-5.1); SODIUM LEVEL 139 MEQ/L (136-145)
--- NOTE | 2020-04-22 09:19 | DS.PDOC ---
Discharge Summary General Date of Admission Apr 20, 2020 at 20:21 Date of Discharge 04/23/2020 Discharge Summary PROCEDURES PERFORMED DURING STAY: [None]. ADMITTING DIAGNOSES / DISCHARGE DIAGNOSES: Diarrhea - likely 2/2 cryptosporidium - likely 2/2 contaminated water TIA (s/p L endarterectomy) HTN DLP [place] [facility] Vitamin D Gout GERD DVT prophylaxis COMPLICATIONS/CHIEF COMPLAINT: Diarrhea HISTORY OF PRESENT ILLNESS: Patient is a 74-year-old male with a PMHx of TIA (s/p L endarterectomy ), HTN, [place] [facility] who presented to the emergency room after experiencing 12 days of diarrhea. Patient was found to have cryptosporidium in his stool and sent to the emergency room for further evaluation. Patient was admitted to hospitalist service for further evaluation and treatment. HOSPITAL COURSE: Diarrhea - likely 2/2 cryptosporidium - likely 2/2 contaminated water - Patient presented to the emergency room with complaints of persistent diarrhea over the last 12 days - She had a recent visit to the emergency room on 04/17 and was discharged after receiving 3 L of normal saline - Reports significant improvement of diarrhea, tolerating diet - Currently patient is hemodynamically stable and afebrile - Stool culture 04/17: Cryptosporidium - Patient reports he was recently given a sample of rifaximin that he has not yet started - HIV / Hepatitis profile negative - Will DC IV fluids - Has completed course of nitazoxanide for 6 total doses - Advised patient to drink only bottled water at this point until his water is evaluated - Patient has been advised to follow-up with his primary care provider within the next 7 days TIA (s/p L endarterectomy) - c/w ASA and Plavix HTN - BP well controlled - ECHO 04/21: G1DD - c/w Losartan on discharge; Will DC HCTZ DLP - c/w Atorvastatin and ASA [place] [facility] - A well on room air - No evidence of exacerbation - Patient reports he uses inhaled therapy intermittently at home Vitamin D - c/w Supplementation Gout - c/w Allopurinol GERD - c/w Protonix DVT prophylaxis - c/w Heparin DISCHARGE MEDICATIONS: Please see below. ALLERGIES: Please see below. PHYSICAL EXAMINATION ON DISCHARGE: Vitals (See below) General: Lying in bed, no acute distress, comfortable, AAOx3 HEENT: NC, AT CVS: RRR, +S1S2 Lungs: Fair air entry b/l, no auscultated wheezes, crackles Abdomen: Soft, nondistended and nontender Extremities: No evidence of extremity edema, - Calf tenderness LABORATORY DATA: Please see below. ACTIVITY: [As tolerated]. DISCHARGE PLAN: Follow-up with primary care provider within 7 days Remain compliant with treatment plan and medications Return to the ER if you experience any problems DISPOSITION: Home DISCHARGE CONDITION: [Stable]. TIME SPENT ON DISCHARGE: 35 minutes. Vital Signs/I&Os Vital Signs Date Time Temp Pulse Resp B/P (MAP) Pulse Ox O2 Delivery O2 Flow Rate FiO2 04/22/20 05:31 98.6 80 20 123/73 (90) 97 Room Air I&O- Last 24 Hours up to 6 AM 04/22/20 06:00 Intake Total 4196 ml Output Total 0 ml Balance 4196 ml Laboratory Data Labs 24H Laboratory Tests 2 04/22/20 07:37: Immature Granulocyte % (Auto) 0.2, Neutrophils (%) (Auto) 57.4, Lymphocytes (%) (Auto) 26.4, Monocytes (%) (Auto) 12.2H, Eosinophils (%) (Auto) 3.4H, Basophils (%) (Auto) 0.4, Neutrophils # (Auto) 2.7, Lymphocytes # (Auto) 1.3L, Monocytes # (Auto) 0.6, Eosinophils # (Auto) 0.2, Basophils # (Auto) 0.0, Nucleated Red Blood Cells % (auto) 0.0, Anion Gap 6L, Glomerular Filtration Rate > 60.0, Calcium Level 8.3L, Magnesium Level 2.0 CBC/BMP Laboratory Tests 04/22/20 07:37 Discharge Medications Scheduled Allopurinol (Allopurinol) 100 Mg Tablet, 100 MG PO DAILY, (Reported) Aspirin (Aspirin EC) 81 Mg Tab, 81 MG PO DAILY, (Reported) Atorvastatin Calcium (Atorvastatin Calcium) 40 Mg Tablet, 40 MG PO DAILY, (Reported) Cholecalciferol (Vitamin D3) (Vitamin D3) 1,000 Unit Tablet, 1,000 UNITS PO DAILY, (Reported) Clopidogrel Bisulfate (Plavix) 75 Mg Tablet, 75 MG PO DAILY, (Reported) Loratadine (Loratadine) 10 Mg Tablet, 10 MG PO DAILY, (Reported) Losartan Potassium (Losartan Potassium) 50 Mg Tablet, 100 MG PO DAILY, (Reported) Metoprolol Succinate (Metoprolol Succinate) 100 Mg Tab, 100 MG PO DAILY, (Reported) Nitazoxanide (Alinia) 500 Mg Tablet, 500 MG PO BID Pantoprazole Sodium (Pantoprazole Sodium) 40 Mg Tab, 40 MG PO DAILY, (Reported) Scheduled PRN Albuterol Sulfate (Ventolin Hfa) 108 Mcg/Act Aer, 2 PUFFS INH Q4H PRN for SOB/WHEEZING, (Reported) Fluticasone Propionate (Flovent Hfa) 110 Mcg/Act Aer, 2 PUFFS INH BID PRN for SOB/WHEEZING, (Reported) Allergies Coded Allergies: No Known Allergies (Unverified , 05/23/17) PEDRO KRUSE MD Apr 22, 2020 09:19
[2020-04-22] MEDS: ATORVASTATIN 20 MG TAB PO SCH (09:24)
[2020-04-22] MEDS: VITAMIN D 1,000 INTERNATIONAL UNITS TABLET PO SCH (09:24)
[2020-04-22] MEDS: LORATADINE 10 MG TAB PO SCH (09:24)
[2020-04-22] MEDS: PANTOPRAZOLE 40MG TAB (PROTONIX) PO SCH (09:24)
[2020-04-22 09:25] VITALS: BP 124/74
[2020-04-22] MEDS: allopurinoL 100 MG TAB PO SCH (09:25)
[2020-04-22] MEDS: LOSARTAN 50MG TABLET PO SCH (09:25)
[2020-04-22] MEDS: NITAZOXANIDE 500 MG TAB (ALINIA) PO SCH ×2 (09:25→21:19)
[2020-04-22] MEDS: CLOPIDOGREL 75 MG TAB PO SCH (09:25)
[2020-04-22] MEDS: ASPIRIN 81 MG ENTERIC TAB PO SCH (09:25)
[2020-04-22] MEDS: METOPROLOL SUCC (TopROL XL) 100MG *XL* TAB PO SCH (09:26)
[2020-04-22 14:00] VITALS: BP 118/54
[2020-04-22 15:25] VITALS: BP 114/54
[2020-04-22 20:16] VITALS: BP 125/70
[2020-04-23] MEDS: HEPARIN SOD (PORCINE) 5000UNITS/ML VIAL (J1644 PER 1000UNITS) SC SCH (05:32)
[2020-04-23 05:58] VITALS: BP 126/70
[2020-04-23 07:59] LABS: BASO % 0.2 % (0.0-1.0); EOS # 0.2 10^3/uL (0.0-0.5); EOS % 4.1 % (0.0-3.0); HEMATOCRIT 35.1 % (42.0-52.0); HEMOGLOBIN 12.1 g/dl (13.5-17.5); LYMPH # 1.2 10^3/uL (1.5-5.0); MEAN CORPUSCULAR HEMOGLOBIN 30.5 pg (27.0-33.0); MEAN CORPUSCULAR HGB CONC 34.5 g/dl (32.0-36.5); MEAN CORPUSCULAR VOLUME 88.4 fl (80.0-96.0); MONO # 0.5 10^3/uL (0.0-0.8); NEUTROPHILS # 2.4 10^3/uL (1.5-8.5); NEUTROPHILS % 55.2 % (36.0-66.0); PLATELET COUNT, AUTOMATED 171 10^3/uL (150-450); RED BLOOD COUNT 3.97 10^6/uL (4.30-6.10); WHITE BLOOD COUNT 4.4 10^3/uL (4.0-10.0)
[2020-04-23 08:14] VITALS: BP 146/76
[2020-04-23] MEDS: LORATADINE 10 MG TAB PO SCH (08:16)
[2020-04-23] MEDS: ASPIRIN 81 MG ENTERIC TAB PO SCH (08:16)
[2020-04-23] MEDS: CLOPIDOGREL 75 MG TAB PO SCH (08:16)
[2020-04-23] MEDS: NITAZOXANIDE 500 MG TAB (ALINIA) PO SCH (08:16)
[2020-04-23 08:17] VITALS: BP 146/76
[2020-04-23] MEDS: METOPROLOL SUCC (TopROL XL) 100MG *XL* TAB PO SCH (08:17)
[2020-04-23] MEDS: ATORVASTATIN 20 MG TAB PO SCH (08:17)
[2020-04-23] MEDS: allopurinoL 100 MG TAB PO SCH (08:17)
[2020-04-23] MEDS: VITAMIN D 1,000 INTERNATIONAL UNITS TABLET PO SCH (08:17)
[2020-04-23] MEDS: PANTOPRAZOLE 40MG TAB (PROTONIX) PO SCH (08:17)
[2020-04-23] MEDS: LOSARTAN 50MG TABLET PO SCH (08:17)
[2020-04-23 08:24] LABS: BLOOD UREA NITROGEN 8 MG/DL (7-18); CALCIUM LEVEL 8.3 MG/DL (8.8-10.2); CARBON DIOXIDE LEVEL 24 MEQ/L (21-32); CHLORIDE LEVEL 108 MEQ/L (98-107); CREATININE FOR GFR 1.06 MG/DL (0.70-1.30); GLOMERULAR FILTRATION RATE > 60.0 (>42); GLUCOSE, FASTING 85 MG/DL (70-100); MAGNESIUM LEVEL 1.9 MG/DL (1.8-2.4); POTASSIUM SERUM 3.8 MEQ/L (3.5-5.1); SODIUM LEVEL 139 MEQ/L (136-145)
--- NOTE | 2020-04-23 11:14 | IPNPDOC ---
Text Note Date of Service The patient was seen on 04/23/20. NOTE Subjective: Patient was seen and examined at the bedside. Patient remain in the hospital for 1 additional day in order to complete the course of his antiparasitic treatment with nitazoxanide. Patient remains comfortable, denies any chest pain, short of breath, palpitations, nausea, vomiting, abdominal pain. Reports his last bowel movement was yesterday evening. Denies any urinary discomfort. Objective: Vitals (See below) General: Lying in bed, no acute distress, remains comfortable, AAOx3 HEENT: NC, AT CVS: +S1S2 Lungs: Fair air entry b/l, no wheezing / crackles or rhonchi Abdomen: Soft, ND, non-tender Extremities: NO evidence of edema, - Calf tenderness Assessment and plan: Patient has completed the course of his nitazoxanide; he's been advised to follow-up with his primary care provider within the next 7 days Will resume home medications and will continue to hold HCTZ Please see discharge summary VS,Dagoberto, I+O VS, Dagoberto, I+O Laboratory Tests 04/23/20 06:41 Vital Signs Date Time Temp Pulse Resp B/P (MAP) Pulse Ox O2 Delivery O2 Flow Rate FiO2 04/23/20 08:17 84 146/76 04/23/20 05:58 98.9 18 96 Room Air I&O- Last 24 Hours up to 6 AM 04/23/20 06:00 Intake Total 1580 ml Output Total 0 ml Balance 1580 ml PEDRO KRUSE MD Apr 23, 2020 11:14
== END 2020-04-23 09:55 | disposition home or self-care (01) | DRG 373 ==
LOC: M ED 16:38 → M ED INP 20:21 → ENRESERV 21:19 → M MS5PR 22:03
PROVIDERS: ADMIT Internal Medicine; ATTEND Internal Medicine
DX: A07.2 Cryptosporidiosis (principal); J67.0 Farmer's lung; I10 Essential (primary) hypertension; K21.9 Gastro-esophageal reflux disease without esophagitis; M10.9 Gout, unspecified; E55.9 Vitamin D deficiency, unspecified; Z79.899 Other long term (current) drug therapy; Z79.82 Long term (current) use of aspirin; Z86.73 Personal history of transient ischemic attack (TIA), and cerebral infarction without residual deficits

== ENCOUNTER → 2021-04-03 | Outpatient (CLI) | payer MEDICARE ==
[~2021-04-03] MED LIST changes: +ALIN500T2 PO; +ALLO10TA PO; +ATOR40TA75 PO; +D31000TA2 PO; +HYDR-3490 PO; +LORA-674 PO; -LORA5SOL12 PO; +LORA5SOL44 PO; +LOSA50TA88 PO; +PANT40TA29 PO; -PANT40TA3 PO; +PLAV1TAB2 PO; +XIFA550T PO
[2021-04-03 19:25] LABS: ALBUMIN 3.9 GM/DL (3.2-5.2); BILIRUBIN,TOTAL 0.6 MG/DL (0.2-1.0); CALCIUM LEVEL 9.6 MG/DL (8.8-10.2); CHOLESTEROL RISK RATIO 3.5 (<5); CREATININE FOR GFR 1.33 MG/DL (0.70-1.30); GLOMERULAR FILTRATION RATE 55.7 (>42); POTASSIUM SERUM 4.7 MEQ/L (3.5-5.1); TOTAL PROTEIN 6.9 GM/DL (6.4-8.2)
== END ==
LOC: M PLALAB 13:35
PROVIDERS: ATTEND Nurse Practitioner Family
DX: I10 Essential (primary) hypertension (principal); N40.1 Benign prostatic hyperplasia with lower urinary tract symptoms
CPT/HCPCS: 36415; 80053; 80061; G0103

== ENCOUNTER 2021-05-06 13:03 | Emergency (ER) | payer MEDICARE ==
[~2021-05-06] VITALS: Ht 177.8 cm; Wt 102.8 kg
[2021-05-06 13:45] LABS: BASO % 0.6 % (0.0-1.0); EOS # 0.5 10^3/uL (0.0-0.5); EOS % 7.6 % (0.0-3.0); HEMATOCRIT 44.3 % (42.0-52.0); HEMOGLOBIN 14.9 g/dl (13.5-17.5); LYMPH # 1.6 10^3/uL (1.5-5.0); LYMPH % 22.3 % (24.0-44.0); MEAN CORPUSCULAR HEMOGLOBIN 31.3 pg (27.0-33.0); MEAN CORPUSCULAR HGB CONC 33.6 g/dl (32.0-36.5); MEAN CORPUSCULAR VOLUME 93.1 fl (80.0-96.0); MONO # 0.7 10^3/uL (0.0-0.8); MONO % 9.2 % (2.0-8.0); NEUTROPHILS # 4.3 10^3/uL (1.5-8.5); PLATELET COUNT, AUTOMATED 166 10^3/uL (150-450); RED BLOOD COUNT 4.76 10^6/uL (4.30-6.10); WHITE BLOOD COUNT 7.1 10^3/uL (4.0-10.0)
--- NOTE | 2021-05-06 13:47 | REP ---
INDICATION: CHEST PAIN COMPARISON: 04/15/2019 TECHNIQUE: Portable AP view of the chest FINDINGS: The mediastinum and cardiac silhouette are stable and within normal limits for portable technique. The lung stark are clear without acute consolidation, effusion, or pneumothorax. Skeletal structures are intact. IMPRESSION: No acute cardiopulmonary process appreciated. <Electronically signed by Fabricio Scruggs > 05/06/21 [id number]
[2021-05-06] MEDS ORDERED: ISOVUE-370 76% 100ML VIAL As Ordered ONE (14:01)
[2021-05-06 14:22] LABS: ALBUMIN 3.8 GM/DL (3.2-5.2); BILIRUBIN,DIRECT 0.2 MG/DL (0.0-0.2); BILIRUBIN,TOTAL 0.7 MG/DL (0.2-1.0); FREE T4 0.9 NG/DL (0.76-1.46); THYROID STIMULATING HORMONE 2.83 uIU/ML (0.358-3.740)
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
[2021-05-06 14:57] LABS: RSV AMPLIFICATION NEGATIVE (NEGATIVE)
[2021-05-06 17:18] VITALS: BP 145/77
--- NOTE | 2021-05-06 19:20 | ECGEPIP ---
[facility] - ED Test Date: 2021-05-06 Pat Name: SWATHI VALADEZ Department: Room: - Gender: Male Mold Parter: DARYL : 1945 Requested By: Maria T Bustillos Order Number: [id number] Reading MD: Maria T Bustillos Measurements Intervals [place] Rate: 86 P: 62 [place]: 164 QRS: 74 QRSD: 78 T: 73 QT: 384 QTc: 459 Interpretive Statements Normal sinus rhythm Nonspecific ST T wave changes No prior ECG for comparison Electronically Signed on 05-06-2021 19:20:47 EDT by Maria T Bustillos
--- NOTE | 2021-05-06 19:27 | ECGEPIP ---
[facility] - ED Test Date: 2021-05-06 Pat Name: SWATHI VALADEZ Department: Room: - Gender: Male Chief Investigator: YOLANDA : 1945 Requested By: Maria T Bustillos Order Number: [id number] Reading MD: Maria T Bustillos Measurements Intervals [place] Rate: 75 P: 22 [place]: 142 QRS: 51 QRSD: 86 T: 52 QT: 420 QTc: 469 Interpretive Statements Normal sinus rhythm low qrs voltage limb leads Nonspecific ST T wave changes cw 05/06/[address] T wave changes Electronically Signed on 05-06-2021 19:26:43 EDT by Maria T Bustillos
[2021-05-07] MEDS ORDERED: PERC5TAB12 PO (21:28)
[2021-05-07] MEDS ORDERED: IBUP1TAB5 PO (21:28)
[2021-05-07] MEDS ORDERED: LIDO5DIS41 TD (22:58)
[2021-05-08 17:09] LABS: Lyme Disease IgG/IgM Antibodie <0.91 ISR (0.00-0.90); Lyme Disease IgM Ab Quantitati <0.80 index (0.00-0.79)
== END 2021-05-06 17:23 | disposition home or self-care (01) ==
LOC: M ED 13:03
DX: R07.9 Chest pain, unspecified (principal); J44.9 Chronic obstructive pulmonary disease, unspecified; E78.5 Hyperlipidemia, unspecified; I10 Essential (primary) hypertension; Z86.73 Personal history of transient ischemic attack (TIA), and cerebral infarction without residual deficits; Z79.02 Long term (current) use of antithrombotics/antiplatelets; Z79.82 Long term (current) use of aspirin; Z79.899 Other long term (current) drug therapy
CPT/HCPCS: 71045; 71275; 80047; 80076; 83690; 84439; 84443; 84484; 85025; 86617; 87631; 93005; 93041; 94760; 99285; Q9967

== ENCOUNTER 2021-05-07 21:15 | Emergency (ER) | payer MEDICARE ==
[~2021-05-07] VITALS: Ht 177.8 cm; Wt 104.1 kg
[2021-05-07] MEDS ORDERED: IBUP1TAB5 PO (21:28)
[2021-05-07] MEDS ORDERED: PERC5TAB12 PO (21:28)
[2021-05-07] MEDS ORDERED: LIDOCAINE 5% (LIDODERM) PATCH TD ONE (22:05)
[2021-05-07] MEDS ORDERED: NORCO, ANEXSIA 5/325MG TABLET (HYDROcodone/ACETAMINOPHEN) PO ONE (22:05)
[2021-05-07] MEDS ORDERED: NORCO 5/325MG TABLET (BULK FOR ED) PO ONE (22:55)
[2021-05-07] MEDS ORDERED: LIDO5DIS41 TD (22:58)
[2021-05-07 23:30] VITALS: BP 133/73
[2021-05-08] MEDS ORDERED: **NOTE PATIENT COMMENT** MISC XX SCH (21:00)
--- NOTE | 2021-05-09 19:53 | ECGEPIP ---
[facility] - ED Test Date: 2021-05-07 Pat Name: SWATHI VALADEZ Department: Room: - Gender: Male Equity Analyst: FCO : 1945 Requested By: Yrn Loya Order Number: [id number] Reading MD: Aleida Villanueva Measurements Intervals [place] Rate: 67 P: 68 [place]: 176 QRS: 58 QRSD: 76 T: 71 QT: 424 QTc: 448 Interpretive Statements Normal sinus rhythm NSTTW abnormalities low voltage limb similar 05/06/21 Electronically Signed on 05-09-2021 19:53:35 EDT by Aleida Villanueva
== END 2021-05-07 23:39 | disposition home or self-care (01) ==
LOC: M ED 21:15
DX: S20.219A Contusion of unspecified front wall of thorax, initial encounter (principal); X58.XXXA Exposure to other specified factors, initial encounter; Y92.9 Unspecified place or not applicable; Y93.9 Activity, unspecified; Y99.9 Unspecified external cause status; B20 Human immunodeficiency virus [HIV] disease; I10 Essential (primary) hypertension; E78.5 Hyperlipidemia, unspecified; K21.9 Gastro-esophageal reflux disease without esophagitis; J44.9 Chronic obstructive pulmonary disease, unspecified; Z79.02 Long term (current) use of antithrombotics/antiplatelets; Z79.82 Long term (current) use of aspirin; Z79.899 Other long term (current) drug therapy

== ENCOUNTER → 2021-05-31 | Outpatient (CLI) | payer MEDICARE ==
[~2021-05-31] MED LIST changes: +IBUP1TAB5 PO; +LIDO5DIS41 TD; +PERC5TAB12 PO
[2021-05-31 16:31] LABS: ALT/SGPT 169 U/L (12-78); BILIRUBIN,TOTAL 0.7 MG/DL (0.2-1.0); BLOOD UREA NITROGEN 17 MG/DL (7-18); CALCIUM LEVEL 9.7 MG/DL (8.8-10.2); CARBON DIOXIDE LEVEL 31 MEQ/L (21-32); CHLORIDE LEVEL 104 MEQ/L (98-107); CREATININE FOR GFR 1.21 MG/DL (0.70-1.30); GLOMERULAR FILTRATION RATE > 60.0 (>42); GLUCOSE, FASTING 100 MG/DL (70-100); SODIUM LEVEL 139 MEQ/L (136-145)
== END ==
LOC: M WUC 13:03
PROVIDERS: ATTEND Nurse Practitioner Family
DX: I10 Essential (primary) hypertension (principal)

== ENCOUNTER → 2021-10-19 | Outpatient (CLI) | payer MEDICARE ==
[~2021-10-19] MED LIST changes: +LOSA50TA28 PO; -LOSA50TA88 PO
== END ==
LOC: M RAD 11:55
PROVIDERS: ATTEND Physician Assistant
DX: I65.23 Occlusion and stenosis of bilateral carotid arteries (principal)

== ENCOUNTER → 2022-03-27 | Outpatient (CLI) | payer MEDICARE ==
[~2022-03-27] MED LIST changes: -D31000TA2 PO; +VITA100093 PO
[2022-03-27 13:19] LABS: ALBUMIN 3.7 GM/DL (3.2-5.2); BILIRUBIN,TOTAL 0.8 MG/DL (0.2-1.0); CALCIUM LEVEL 8.8 MG/DL (8.8-10.2); CHOLESTEROL RISK RATIO 3.415 (<5); CREATININE FOR GFR 1.3 MG/DL (0.70-1.30); POTASSIUM SERUM 4.4 MEQ/L (3.5-5.1); TOTAL PROTEIN 6.7 GM/DL (6.4-8.2)
== END ==
LOC: M WUC 10:46
PROVIDERS: ATTEND Nurse Practitioner Family
DX: I10 Essential (primary) hypertension (principal); E78.2 Mixed hyperlipidemia; N40.0 Benign prostatic hyperplasia without lower urinary tract symptoms
CPT/HCPCS: 36415; 80053; 80061; G0103

== ENCOUNTER → 2022-08-29 | Outpatient (CLI) | payer MEDICARE | LOC: M WUC 11:29 | PROVIDERS: ATTEND Physician Assistant | DX: S23.41XA Sprain of ribs, initial encounter (principal); X58.XXXA Exposure to other specified factors, initial encounter; Y92.9 Unspecified place or not applicable; Y93.9 Activity, unspecified; Y99.9 Unspecified external cause status ==

== ENCOUNTER → 2023-04-08 | Outpatient (CLI) | payer MEDICARE ==
[~2023-04-08] MED LIST changes: +CLOP75TA99 PO; -PLAV1TAB2 PO
[2023-04-08 18:03] LABS: HEMATOCRIT 45.3 % (42.0-52.0); HEMOGLOBIN 15.2 g/dl (13.5-17.5); MEAN CORPUSCULAR HEMOGLOBIN 32.2 pg (27.0-33.0); MEAN CORPUSCULAR HGB CONC 33.6 g/dl (32.0-36.5); PLATELET COUNT, AUTOMATED 142 10^3/uL (150-450); RED BLOOD COUNT 4.72 10^6/uL (4.30-6.10); WHITE BLOOD COUNT 6.1 10^3/uL (4.0-10.0)
[2023-04-08 18:23] LABS: ALBUMIN 3.9 G/DL (3.2-5.2); ALKALINE PHOSPHATASE 127 U/L (46-116); ALT/SGPT 50 U/L (7.0-40); AST/SGOT 25 U/L (<34); BILIRUBIN,TOTAL 0.5 MG/DL (0.3-1.2); BLOOD UREA NITROGEN 13 MG/DL (9-23); CALCIUM LEVEL 9.4 MG/DL (8.3-10.6); CARBON DIOXIDE LEVEL 28 MMOL/L (20-31); CHLORIDE LEVEL 105 MMOL/L (98-107); CHOLESTEROL LEVEL 201 MG/DL (<200); CHOLESTEROL RISK RATIO 3.66 (<5); CREATININE FOR GFR 1.14 MG/DL (0.70-1.30); GLOMERULAR FILTRATION RATE > 60.0 (>42); GLUCOSE, FASTING 108 MG/DL (74-106); HDL CHOLESTEROL 54.8 MG/DL (>40); LDL CHOLESTEROL 112.8 MG/DL (<100); NON-HDL-C 146.2 MG/DL; SODIUM LEVEL 138 MMOL/L (136-145); TOTAL PROTEIN 6.5 G/DL (5.7-8.2); TRIGLYCERIDES LEVEL 167 MG/DL (<150)
== END ==
LOC: M WUC 11:26
PROVIDERS: ATTEND Physician Assistant
DX: I11.9 Hypertensive heart disease without heart failure (principal); E78.00 Pure hypercholesterolemia, unspecified

== ENCOUNTER → 2023-05-02 | Outpatient (CLI) | payer MEDICARE ==
[~2023-05-02] MED LIST changes: +FLUT12AE6 INH
[2023-05-02 17:46] LABS: BASO # 0.1 10^3/uL (0.0-0.2); BASO % 0.7 % (0.0-1.0); EOS # 0.7 10^3/uL (0.0-0.5); EOS % 9.6 % (0.0-3.0); HEMATOCRIT 46.7 % (42.0-52.0); HEMOGLOBIN 15.2 g/dl (13.5-17.5); LYMPH # 1.7 10^3/uL (1.5-5.0); LYMPH % 23.3 % (24.0-44.0); MEAN CORPUSCULAR HEMOGLOBIN 31.6 pg (27.0-33.0); MEAN CORPUSCULAR HGB CONC 32.5 g/dl (32.0-36.5); MEAN CORPUSCULAR VOLUME 97.1 fl (80.0-96.0); MONO # 0.8 10^3/uL (0.0-0.8); MONO % 10.3 % (2.0-8.0); NEUTROPHILS # 4.1 10^3/uL (1.5-8.5); PLATELET COUNT, AUTOMATED 162 10^3/uL (150-450); RED BLOOD COUNT 4.81 10^6/uL (4.30-6.10); WHITE BLOOD COUNT 7.3 10^3/uL (4.0-10.0)
[2023-05-02 17:50] LABS: ALBUMIN 3.9 G/DL (3.2-5.2); ALKALINE PHOSPHATASE 141 U/L (46-116); ALT/SGPT 43 U/L (7.0-40); AST/SGOT 27 U/L (<34); BILIRUBIN,TOTAL 0.8 MG/DL (0.3-1.2); BLOOD UREA NITROGEN 19 MG/DL (9-23); CALCIUM LEVEL 9.1 MG/DL (8.3-10.6); CARBON DIOXIDE LEVEL 28 MMOL/L (20-31); CHLORIDE LEVEL 106 MMOL/L (98-107); CREATININE FOR GFR 1.23 MG/DL (0.70-1.30); GLOMERULAR FILTRATION RATE > 60.0 (>42); GLUCOSE, FASTING 117 MG/DL (74-106); SODIUM LEVEL 138 MMOL/L (136-145); TOTAL PROTEIN 6.6 G/DL (5.7-8.2)
== END ==
LOC: M WUC 11:39
PROVIDERS: ATTEND Nurse Practitioner Family
DX: I10 Essential (primary) hypertension (principal); Z12.5 Encounter for screening for malignant neoplasm of prostate
CPT/HCPCS: 36415; 80053; 85025; G0103

== ENCOUNTER → 2023-10-08 | Outpatient (REF) | payer MEDICARE ==
[~2023-10-08] MED LIST changes: +LORA-1041 PO; -LORA-674 PO
[2023-10-08 14:53] LABS: BLOOD UREA NITROGEN 17 MG/DL (9-23); CALCIUM LEVEL 9.9 MG/DL (8.3-10.6); CARBON DIOXIDE LEVEL 31 MMOL/L (20-31); CHLORIDE LEVEL 102 MMOL/L (98-107); CREATININE FOR GFR 1.15 MG/DL (0.70-1.30); GLOMERULAR FILTRATION RATE > 60.0 (>42); GLUCOSE, FASTING 90 MG/DL (74-106); POTASSIUM SERUM 4.9 MMOL/L (3.5-5.1); SODIUM LEVEL 139 MMOL/L (136-145)
== END ==
LOC: M WUC 13:52 → M LAB REF 13:52
PROVIDERS: ATTEND Physician Assistant
DX: I11.9 Hypertensive heart disease without heart failure (principal)

== ENCOUNTER 2023-11-06 11:21 | Day surgery (SDC) | payer MEDICARE ==
[~2023-11-06] VITALS: Ht 177.8 cm; Wt 102.3 kg
[~2023-11-06 11:21] MED LIST changes: +AMLO1TAB24 PO; +FLOV100A INH; +LIDOCAINE 2% 100MG/5ML SDV (FOR ANES.) As Ordered ONE; +SIMETHICONE 40MG/0.6ML DROPS 30ML As Ordered ONE; +VITMTA PO; +propofoL 200 MG/20 ML VIAL As Ordered ONE
[2023-11-06] MEDS: NS 1,000 ML IV ONE (12:02)
[2023-11-06 14:14] VITALS: BP 155/80; TEMP 97.3; O2SAT 97
== END 2023-11-06 14:17 | disposition home or self-care (01) ==
LOC: M OPP 11:21
PROVIDERS: ATTEND Surgery
DX: Z12.11 Encounter for screening for malignant neoplasm of colon (principal); D12.2 Benign neoplasm of ascending colon; D12.3 Benign neoplasm of transverse colon; D12.4 Benign neoplasm of descending colon; K57.30 Diverticulosis of large intestine without perforation or abscess without bleeding; Z86.010 Personal history of colon polyps; J44.9 Chronic obstructive pulmonary disease, unspecified; I10 Essential (primary) hypertension; K21.9 Gastro-esophageal reflux disease without esophagitis; E78.00 Pure hypercholesterolemia, unspecified; Z79.899 Other long term (current) drug therapy; Z79.02 Long term (current) use of antithrombotics/antiplatelets; Z86.73 Personal history of transient ischemic attack (TIA), and cerebral infarction without residual deficits; Z87.891 Personal history of nicotine dependence; Z85.820 Personal history of malignant melanoma of skin; N40.0 Benign prostatic hyperplasia without lower urinary tract symptoms

== ENCOUNTER → 2024-04-14 | Outpatient (REF) | payer MEDICARE ==
[~2024-04-14] MED LIST changes: -LIDOCAINE 2% 100MG/5ML SDV (FOR ANES.) As Ordered ONE; +METO200T15 PO; -METO200T28 PO; -SIMETHICONE 40MG/0.6ML DROPS 30ML As Ordered ONE; -propofoL 200 MG/20 ML VIAL As Ordered ONE
[2024-04-14 17:11] LABS: HEMATOCRIT 43.7 % (42.0-52.0); MEAN CORPUSCULAR HEMOGLOBIN 32.5 pg (27.0-33.0); MEAN CORPUSCULAR HGB CONC 34.3 g/dl (32.0-36.5); MEAN CORPUSCULAR VOLUME 94.8 fl (80.0-96.0); PLATELET COUNT, AUTOMATED 171 10^3/uL (150-450); RED BLOOD COUNT 4.61 10^6/uL (4.30-6.10); WHITE BLOOD COUNT 7.4 10^3/uL (4.0-10.0)
[2024-04-14 17:35] LABS: ALBUMIN 3.8 G/DL (3.2-5.2); ALKALINE PHOSPHATASE 144 U/L (46-116); ALT/SGPT 120 U/L (7.0-40); AST/SGOT 73 U/L (<34); BILIRUBIN,TOTAL 0.6 MG/DL (0.3-1.2); BLOOD UREA NITROGEN 20 MG/DL (9-23); CALCIUM LEVEL 9.5 MG/DL (8.3-10.6); CARBON DIOXIDE LEVEL 30 MMOL/L (20-31); CHLORIDE LEVEL 105 MMOL/L (98-107); CHOLESTEROL LEVEL 202 MG/DL (<200); CHOLESTEROL RISK RATIO 3.68 (<5); CREATININE FOR GFR 1.45 MG/DL (0.70-1.30); GLUCOSE, FASTING 93 MG/DL (74-106); HDL CHOLESTEROL 54.8 MG/DL (>40); NON-HDL-C 147.2 MG/DL; POTASSIUM SERUM 4.7 MMOL/L (3.5-5.1); SODIUM LEVEL 139 MMOL/L (136-145); TOTAL PROTEIN 6.5 G/DL (5.7-8.2); TRIGLYCERIDES LEVEL 416 MG/DL (<150)
== END ==
LOC: M LABWUC 16:22
PROVIDERS: ATTEND Physician Assistant
DX: I11.9 Hypertensive heart disease without heart failure (principal); E78.00 Pure hypercholesterolemia, unspecified; I65.23 Occlusion and stenosis of bilateral carotid arteries

== ENCOUNTER → 2024-10-20 | Outpatient (CLI) | payer MEDICARE ==
[2024-10-20 17:10] LABS: PSA SCREENING 0.38 NG/ML (< 4.00)
[2024-10-20 17:13] LABS: ALBUMIN 3.7 G/DL (3.2-5.2); BILIRUBIN,TOTAL 0.8 MG/DL (0.3-1.2); CALCIUM LEVEL 9.7 MG/DL (8.3-10.6); CREATININE FOR GFR 1.26 MG/DL (0.70-1.30); GLOMERULAR FILTRATION RATE 58.6 (>35); TOTAL PROTEIN 6.6 G/DL (5.7-8.2)
[2024-10-20 17:14] LABS: TOTAL 25(OH) VITAMIN D 70.3 NG/ML (20.0-100.0)
== END ==
LOC: M WUC 11:48
PROVIDERS: ATTEND Nurse Practitioner Family
DX: Z00.00 Encounter for general adult medical examination without abnormal findings (principal); I10 Essential (primary) hypertension; E55.9 Vitamin D deficiency, unspecified; Z12.5 Encounter for screening for malignant neoplasm of prostate
CPT/HCPCS: 36415; 80053; 82306; G0103

== ENCOUNTER → 2024-12-02 | Outpatient (CLI) | payer MEDICARE | LOC: M RAD 14:56 | PROVIDERS: ATTEND Physician Assistant | DX: I65.23 Occlusion and stenosis of bilateral carotid arteries (principal) ==

== ENCOUNTER → 2025-02-10 | Outpatient (CLI) | payer MEDICARE | LOC: M PLAIMG 09:03 | PROVIDERS: ATTEND Nurse Practitioner Family | DX: J15.9 Unspecified bacterial pneumonia (principal) ==

== ENCOUNTER → 2025-06-20 | Outpatient (CLI) | payer MEDICARE ==
[~2025-06-20] MED LIST changes: +LIDO1ADH93 TD; -LIDO5DIS41 TD
[2025-06-20 18:54] LABS: BASO # 0.0 10^3/uL (0.0-0.2); BASO % 0.5 % (0.0-1.0); C REACTIVE PROTEIN QUANTITATIV 0.93 MG/DL (<1.0); EOS # 0.5 10^3/uL (0.0-0.5); EOS % 5.9 % (0.0-3.0); LYMPH # 2.1 10^3/uL (1.5-5.0); LYMPH % 25.0 % (24.0-44.0); MONO # 0.7 10^3/uL (0.0-0.8); MONO % 8.2 % (2.0-8.0); NEUTROPHILS # 5.1 10^3/uL (1.5-8.5); NEUTROPHILS % 60.2 % (36.0-66.0); PLATELET COUNT, AUTOMATED 169 10^3/uL (150-450)
[2025-06-20 18:56] LABS: ALT/SGPT 31.0 U/L (7.0-40); AST/SGOT 27.0 U/L (<34); CALCIUM LEVEL 9.7 MG/DL (8.3-10.6); CARBON DIOXIDE LEVEL 27.0 MMOL/L (20-31); CHLORIDE LEVEL 102.0 MMOL/L (98-107); CREATININE FOR GFR 1.43 MG/DL (0.70-1.30); GLOMERULAR FILTRATION RATE 49.5 (>35); POTASSIUM SERUM 4.7 MMOL/L (3.5-5.1); SODIUM LEVEL 138.0 MMOL/L (136-145)
[2025-06-20 19:29] LABS: ERYTHROCYTE SEDIMENTATION RATE 13 mm/hr (0-20)
[2025-06-24 19:58] LABS: LYME TOTAL ANTIBODY CIA <= 0.90 Index (<=0.90)
[2025-06-26 08:27] LABS: BORRELIA SPECIES DNA NOT DETECTED (NOT DETECT)
== END ==
LOC: M WUC 13:56
PROVIDERS: ATTEND Physician Assistant
DX: R53.83 Other fatigue (principal)

== ENCOUNTER → 2025-10-25 | Outpatient (CLI) | payer MEDICARE ==
[2025-10-25 18:25] LABS: ALT/SGPT 34 U/L (7.0-40); AST/SGOT 23 U/L (<34); C REACTIVE PROTEIN QUANTITATIV < 0.50 MG/DL (<1.0); CALCIUM LEVEL 9.5 MG/DL (8.3-10.6); CARBON DIOXIDE LEVEL 32 MMOL/L (20-31); CHLORIDE LEVEL 100 MMOL/L (98-107); CREATININE FOR GFR 1.19 MG/DL (0.70-1.30); GLOMERULAR FILTRATION RATE 61.4 (>35); POTASSIUM SERUM 5.0 MMOL/L (3.5-5.1); SODIUM LEVEL 139 MMOL/L (136-145)
[2025-10-25 18:26] LABS: PSA SCREENING 0.47 NG/ML (< 4.00)
[2025-10-25 18:29] LABS: TOTAL 25(OH) VITAMIN D 64.3 NG/ML (20.0-100.0)
[2025-10-25 18:34] LABS: BASO # 0.1 10^3/uL (0.0-0.2); BASO % 0.7 % (0.0-1.0); EOS # 0.5 10^3/uL (0.0-0.5); EOS % 7.2 % (0.0-3.0); LYMPH # 2.1 10^3/uL (1.5-5.0); LYMPH % 28.4 % (24.0-44.0); MONO # 0.7 10^3/uL (0.0-0.8); MONO % 8.9 % (2.0-8.0); NEUTROPHILS # 4.1 10^3/uL (1.5-8.5); NEUTROPHILS % 54.5 % (36.0-66.0); PLATELET COUNT, AUTOMATED 187 10^3/uL (150-450)
== END ==
LOC: M WUC 14:04
PROVIDERS: ATTEND Nurse Practitioner Family
DX: Z00.00 Encounter for general adult medical examination without abnormal findings (principal); E55.9 Vitamin D deficiency, unspecified; I10 Essential (primary) hypertension; M10.9 Gout, unspecified; R51.9 Headache, unspecified; Z12.5 Encounter for screening for malignant neoplasm of prostate
CPT/HCPCS: 36415; 80053; 82306; 84550; 85025; 85652; 86140; G0103